=== PATIENT | female | born 1990 | race Caucasian/White ===

== ENCOUNTER 2020-03-28 17:25 | Emergency (ER) | payer BC ==
--- NOTE | 2020-03-28 17:35 | ER Document Report ---
ED Medical Screen (RME) - General Chief Complaint: Pelvic Pain Stated Complaint: ABDOMINAL PAIN Time Seen by Provider: 03/28/20 17:30 Mode of Arrival: Wheelchair Information source: Patient Notes: 29-year-old female presented to ED for complaint of lower abdominal pain when she woke up. She states it felt like was full and heavy and then it started getting better. She states now she has right ovarian pain this feels like it is pulsating. She states it is steadily increased until now is all the way up her back. She states she does have a clear vaginal discharge. Last menstrual period was March 07, 2019. She denies use of tobacco alcohol or drugs. We will get blood urine and transvaginal ultrasound. I have greeted and performed a rapid initial assessment of this patient. A comprehensive ED assessment and evaluation of the patient, analysis of test results and completion of medical decision making process will be conducted by an additional ED providers. - Related Data Allergies/Adverse Reactions: No Known Allergies Allergy (Verified 03/28/20 17:30) Past Medical History - General Information source: Patient - Social History Cigarette use (# per day): No Frequency of alcohol use: None Drug Abuse: None Lives with: Family Family history: Reviewed & Not Pertinent - Past Medical History Cardiac Medical History: Reports: None Pulmonary Medical History: Reports: None EENT Medical History: Reports: None Neurological Medical History: Reports: None Endocrine Medical History: Reports: None Renal/ Medical History: Reports: Hx Ovarian Cysts Malignancy Medical History: Reports: None GI Medical History: Reports: None Musculoskeltal Medical History: Reports Hx Musculoskeletal Deformity, Reports Hx Musculoskeletal Trauma Skin Medical History: Reports None Psychiatric Medical History: Reports: None Traumatic Medical History: Reports: None Infectious Medical History: Reports: None Past Surgical History: Reports: Hx Cholecystectomy, Hx Orthopedic Surgery - 4 or 5 surgeries on left knee, Other - Uterine hysteroscopy Physical Exam - Vital signs Vitals: Temp Pulse Resp BP Pulse Ox 99.1 F 80 18 149/92 H 98 03/28/20 17:28 03/28/20 17:28 03/28/20 17:28 03/28/20 17:28 03/28/20 17:28 Course - Vital Signs Vital signs: Temp Pulse Resp BP Pulse Ox 99.1 F 80 18 149/92 H 98 03/28/20 17:28 03/28/20 17:28 03/28/20 17:28 03/28/20 17:28 03/28/20 17:28
--- NOTE | 2020-03-28 19:14 | RADIOLOGY REPORT (SQ) ---
EXAM DESCRIPTION: U/S NON OB PEL TV W/DOPPLER IMAGES COMPLETED DATE/TIME: 03/28/2020 6:58 pm REASON FOR STUDY: right pelvic COMPARISON: None. TECHNIQUE: Dynamic and static grayscale images acquired of the pelvis via transvaginal approach and recorded on PACS. Additional selected color Doppler and spectral images recorded. LIMITATIONS: None. FINDINGS: UTERUS: Contour normal. No mass. ENDOMETRIAL STRIPE: No focal or generalized thickening. No masses. CERVIX: No nabothian cysts. RIGHT OVARY AND DOPPLER: Normal size. Dominant follicle is noted. No worrisome masses. Normal arter ial vascular flow without evidence for torsion. LEFT OVARY AND DOPPLER: Normal size. Dominant follicle is noted. No worrisome masses. Normal arteri al vascular flow without evidence for torsion. FREE FLUID: None noted. OTHER: No other significant finding. MEASUREMENTS: UTERUS: 9.2 x 4.8 x 5.4 cm ENDOMETRIAL STRIPE: 12 mm RIGHT OVARY: 2.9 x 1.9 x 1.3 cm LEFT OVARY: 2.2 x 1.4 x 2.0 cm IMPRESSION: Unremarkable pelvic ultrasound. TECHNICAL DOCUMENTATION: JOB ID: [id number] 2010 [employer]- All Rights Reserved Rev-09/08 Reading location - IP/workstation name: [email or web address]
[2020-03-28 19:31] LABS: ABSOLUTE MONOCYTES (AUTO) 0.6 10^3/uL (0.1-1.4); ABSOLUTE NEUT (AUTO) 11.9 10^3/uL (1.7-8.2); BASOPHILS % (AUTO) 0.3 % (0-2); EOSINOPHILS % (AUTO) 0.2 % (0-6); HEMATOCRIT 37.3 % (36.0-47.0); HEMOGLOBIN 12.3 g/dL (12.0-15.5); LYMPHOCYTES % (AUTO) 7.3 % (13-45); MEAN CORPUSCULAR VOLUME 85 fl (80-97); MONOCYTES % (AUTO) 4.3 % (3-13); PLATELET COUNT 291 10^3/uL (150-450); RED BLOOD COUNT 4.39 10^6/uL (3.72-5.28); RED CELL DISTRIBUTION WIDTH 14.2 % (11.5-14.0); SEGMENTED NEUTROPHILS % (AUTO) 87.9 % (42-78); TOTAL CELLS COUNTED % (AUTO) 100 %; WHITE BLOOD COUNT 13.5 10^3/uL (4.0-10.5)
[2020-03-28 19:48] LABS: APPEARANCE,URINE CLOUDY; BILIRUBIN,URINE NEGATIVE (NEGATIVE); COLOR,URINE AMBER; GLUCOSE, URINE NEGATIVE (NEGATIVE); KETONES,URINE NEGATIVE (NEGATIVE); LEUKOCYTE ESTERASE,URINE NEGATIVE (NEGATIVE); NITRITE,URINE NEGATIVE (NEGATIVE); PROTEIN,URINE 30 mg/dL (NEGATIVE); URINE SPECIFIC GRAVITY 1.025; UROBILINOGEN,URINE NEGATIVE mg/dL (<2.0)
[2020-03-28 19:55] LABS: ALBUMIN 4.3 g/dL (3.5-5.0); ALKALINE PHOSPHATASE 91 U/L (38-126); ANION GAP 7 (5-19); ASPARTATE AMINO TRANSFERASE 22 U/L (14-36); BILIRUBIN,TOTAL 0.6 mg/dL (0.2-1.3); BLOOD UREA NITROGEN 12 mg/dL (7-20); CALCIUM 9.6 mg/dL (8.4-10.2); CARBON DIOXIDE 26 mmol/L (22-30); CHLORIDE 104 mmol/L (98-107); GLUCOSE 131 mg/dL (75-110); POTASSIUM 4.6 mmol/L (3.6-5.0); TOTAL PROTEIN 7.5 g/dL (6.3-8.2)
--- NOTE | 2020-03-28 21:15 | ER Document Report ---
ED General - General Chief Complaint: Pelvic Pain Stated Complaint: ABDOMINAL PAIN Time Seen by Provider: 03/28/20 17:30 Primary Care Provider: [facility] [Provider Group] - Follow up in 3-5 days (for urology follow up) Mode of Arrival: Wheelchair - HPI Notes: 29-year-old female with past medical history of cholecystectomy to the emergency department with complaints of right lower abdominal pain that radiates up into her flank since this morning. She states that the pain is gotten progressively worse. She admits to nausea but she has not been vomiting. She denies any diarrhea, fevers, chills, cough, sore throat, loss of taste or smell, ear pain, headache. She states that she still does have her appendix. She has never had a kidney stone. She denies chance for . - Related Data Allergies/Adverse Reactions: Sulfa (Sulfonamide Antibiotics) Allergy (Verified 03/28/20 21:54) Past Medical History - General Information source: Patient - Social History Smoking Status: Never Smoker Cigarette use (# per day): No Chew tobacco use (# tins/day): No Frequency of alcohol use: None Drug Abuse: None Lives with: Family Family History: Reviewed & Not Pertinent Patient has homicidal ideation: No - Past Medical History Cardiac Medical History: Reports: None Pulmonary Medical History: Reports: None EENT Medical History: Reports: None Neurological Medical History: Reports: None Endocrine Medical History: Reports: None Renal/ Medical History: Reports: Hx Ovarian Cysts Malignancy Medical History: Reports: None GI Medical History: Reports: None Musculoskeletal Medical History: Reports Hx Musculoskeletal Deformity, Reports Hx Musculoskeletal Trauma Skin Medical History: Reports None Psychiatric Medical History: Reports: None Traumatic Medical History: Reports: None Infectious Medical History: Reports: None Past Surgical History: Reports: Hx Cholecystectomy, Hx Orthopedic Surgery - 4 or 5 surgeries on left knee, Other - Uterine hysteroscopy Review of Systems - Review of Systems Constitutional: denies: Chills, Fever Cardiovascular: denies: Chest pain, Palpitations, Heart racing, Dizziness, Lightheaded, Edema Respiratory: denies: Cough, Short of breath Gastrointestinal: Abdominal pain, Nausea. denies: Diarrhea, Vomiting Genitourinary: Flank pain Female Genitourinary: No symptoms reported Musculoskeletal: No symptoms reported Skin: No symptoms reported Hematologic/Lymphatic: No symptoms reported Neurological/Psychological: No symptoms reported -: Yes All other systems reviewed and negative Physical Exam - Vital signs Vitals: Temp Pulse Resp BP Pulse Ox 99.1 F 80 18 149/92 H 98 03/28/20 17:28 03/28/20 17:28 03/28/20 17:28 03/28/20 17:28 03/28/20 17:28 Interpretation: Hypertensive - Notes Notes: PHYSICAL EXAMINATION: GENERAL: Well-appearing, well-nourished, appears to be in mild pain discomfort HEAD: Atraumatic, normocephalic. EYES: Pupils equal round and reactive to light, extraocular movements intact, sclera anicteric, conjunctiva are normal. ENT: nares patent, oropharynx clear without exudates. Moist mucous membranes. NECK: Normal range of motion, supple without lymphadenopathy LUNGS: Breath sounds clear to auscultation bilaterally and equal. No wheezes rales or rhonchi. HEART: Regular rate and rhythm without murmurs ABDOMEN: Obese, tenderness to palpation to the right lower quadrant, there is right CVA tenderness. There is no rebound or guarding. There is no distention. The abdomen is not tympanic. Noted healed lap natividad surgical site scars. EXTREMITIES: Normal range of motion, no pitting or edema. No cyanosis. NEUROLOGICAL: No focal neurological deficits. Moves all extremities spontaneously and on command. PSYCH: Normal mood, normal affect. SKIN: Warm, Dry, normal turgor, no rashes or lesions noted. Course - Re-evaluation Re-evalutation: 03/28/20 23:[address] reading for 4 mm right sided stone with mild hydronephrosis. Rounded on patient and update her about the CT reading. States she continues to have pain. Have ordered more pain meds for her. Rounded on patient and she is significantly improved after second round of pain medicine. We discussed plan for outpatient therapy for her kidney stone. Plan will be to send home with pain medicine, antiemetics, Flomax. She is to follow- up with a urologist. She is to return immediately if she has worsening symptoms such as intractable pain, intractable vomiting, fevers, or any other complaints. She agrees with the plan. Impression: Right sided flank pain and abdominal pain with 4 mm kidney stone. We will follow the plan as outlined above. - Vital Signs Vital signs: Temp Pulse Resp BP Pulse Ox 98.1 F 73 18 142/89 H 100 03/29/20 00:58 03/29/20 00:58 03/29/20 00:58 03/29/20 00:58 03/29/20 00:58 - Laboratory Result Diagrams: 03/28/20 19:03 03/28/20 19:03 Laboratory results interpreted by me: 03/28/20 03/28/20 03/28/20 18:56 19:03 19:03 WBC 13.5 H RDW 14.2 H Lymph % (Auto) 7.3 L Absolute Neuts (auto) 11.9 H Seg Neutrophils % 87.9 H Glucose 131 H Urine Protein 30 H Urine Blood LARGE H Urine Ascorbic Acid 40 H - Diagnostic Test Radiology reviewed: Image reviewed, Reports reviewed Discharge - Discharge Clinical Impression: Kidney stone, Right sided abdominal pain, Nausea Condition: Stable Disposition: HOME, SELF-CARE Instructions: Kidney Stone ([facility]) Additional Instructions: Push fluids. Take medicine as prescribed. Please follow-up with urology. You were found to have a 4 mm kidney stone on the right side. Please return if you have worsening and intractable pain, intractable nausea and vomiting, fever. Prescriptions: Ondansetron [Zofran Odt 4 mg Tablet] 1 - 2 tab PO Q4HP PRN #10 tab.rapdis PRN Reason: Naproxen [EC-Naproxen] 500 mg PO BID #20 tablet. Tamsulosin HCl [Flomax 0.4 mg Cap.sr] 0.4 mg PO DAILY #7 cap.sr.24h Hydrocodone/Acetaminophen [[place] 5-325 mg Tablet] 1 tab PO Q4H #12 tablet Referrals: [facility] [Provider Group] - Follow up in 3-5 days (for urology follow up)
[2020-03-28] MEDS ORDERED: ONDANSETRON HCL INJ/PF 4 MG/2 ML SDV IV ONE (21:33)
[2020-03-28] MEDS ORDERED: MORPHINE SULFATE 10 MG/ML INJ IV ONE ×2 (21:33→23:20)
--- NOTE | 2020-03-28 23:13 | RADIOLOGY REPORT (SQ) ---
CT abdomen and pelvis with contrast on 03/28/2020 at 10:30 PM CLINICAL INDICATION: Right lower quadrant pain TECHNIQUE: Multiple axial images are obtained throughout the abdomen and pelvis following the administration of IV contrast, 100 mL of Omnipaque 350contrast was administered intravenously without complication. This exam was performed according to our departmental dose-optimization program, which includes automated exposure control, adjustment of the mA and/or kV according to patient size and/or use of iterative reconstruction technique. Total DLP is 2224.07 mGy*cm. COMPARISON: None FINDINGS: Abdomen: The lung bases are clear. The patient is status post cholecystectomy. There is mild right hydronephrosis and hydroureter to the level of a 4 mm right UVJ stone. There is a small nonobstructing stone in the lower pole of the right kidney. Solid abdominal organs are otherwise unremarkable. There is no abdominal adenopathy. There is no free fluid or free air within the abdomen. The abdominal portion of the GI tract is unremarkable. Pelvis: Pelvic organs appear unremarkable by CT. Trace free fluid in the pelvis is likely physiologic. There is no pelvic adenopathy. The pelvic portion of the GI tract including the appendix is unremarkable. No acute bony abnormality is noted. IMPRESSION: 1. Mild right hydronephrosis and hydroureter to the level of a 4 mm right UVJ stone. 2. Small nonobstructing right renal stone.
[2020-03-28] MEDS ORDERED: KETOROLAC TROMETHAMINE INJ/PF 30 MG/1 ML SDV IV ONE (23:20)
[2020-03-28] MEDS ORDERED: NORMAL SALINE 1000 ML 1,000 ML IV ONE (23:20)
[2020-03-29 01:03] VITALS: BP 142/89
== END 2020-03-29 00:55 | disposition home or self-care (01) ==
LOC: ER 17:25
DX: N13.2 Hydronephrosis with renal and ureteral calculous obstruction (principal); R11.0 Nausea; Z88.2 Allergy status to sulfonamides
CPT/HCPCS: 96376; 99285; 96361; 96374; 96375; 36415; 87086; 84703; 85025; 80053; 81001; 76830; 93976; 74177; J1885; J2270; J2405; J7030